=== PATIENT | female | born 1985 | race Caucasian/White ===

== ENCOUNTER 2023-12-12 10:35 | Outpatient (REF) | payer MEDICAID, SELFPAY ==
--- NOTE | 2023-12-12 15:48 | MHC.AU.MED ---
Medical Clearance for Hearing Instrumentation Date: 12/12/23 Patient Name: Lorena Garrett Date of : 1985 Primary Care Provider: Referring Provider: Mireille Palacios MD We have seen your patient on 12/12/23 and have determined that they are a candidate for amplification (See accompanying report). Specifically, they would benefit from: Hearing aid use in both ears There is a statute that addresses Medical Evaluation Requirements prior to fitting a patient with a hearing aid. According to [place] statute 265 CMR:6.03(1), (a) General. Except as provided in 265 CMR 6.03(1)(b), a groundskeeping yardman shall not sell a hearing aid unless the prospective user has presented to the groundskeeping yardman a written statement signed by a licensed physician that states that the patient's hearing loss has been medically evaluated and the patient may be considered a candidate for a hearing aid. The medical evaluation must have taken place within the preceding six months. Please note: Due to the [place] Statute referenced above, we cannot accept a signature other than that of a licensed physician. PLATFORM LOADER and PA signatures cannot be accepted. I am in agreement with the above recommendation. There is no medical contraindication for hearing instrumentation. Physician Signature Date Physician Name (Printed)
--- NOTE | 2023-12-15 09:33 | MHC.AU.HA1 ---
Hearing Aid Evaluation Date of Visit: 12/12/23 Screen Printing Paster Used: Declined by Patient Historical Information: Description of Hearing: Mild-moderate to profound sensorineural hearing loss Summary: Lorena visited with her sister and niece, who interpreted and provided history. Lorena has reportedly had hearing loss since childhood with unknown etiology. They suspect her hearing has gotten worse over time, but she only wore a hearing aid briefly in childhood and has not had a hearing test since then. They state she has general developmental delays with no official diagnosis, is generally nonverbal and also has vision issues. Testing shows mild-moderate to profound sensorineural hearing loss bilaterally. Discussed hearing aid options, they would prefer rechargeable aids so will pursue Phonak Yuli L70 P-Rs in beige. Impressions taken without incident-- recommended wax removal prior to hearing aid fitting. Hearing Aid Prescription: Based on the individual?s shared listening needs, communication environments, dexterity, desire for connectivity, and personal preferences, the following prescription for amplification has been made: Right ear: Make, Model, Color: Phonak Yuli L70 LA, beige Battery Size: Rechargeable Type of Earmold/Dome/CShell/SlimTip: skeleton Left ear: Left ear prescription to be same as Right Hearing Aid above: Make, Model, Color: Phonak Yuli L70 LA, beige Battery Size: Rechargeable Type of Earmold/Dome/CShell/SlimTip: skeleton Plan of Care: Action Taken/Action Needed: Earmold Impressions Taken Medical Clearance to be requested from PCP/ENT Hearing Instrument Fitting to be scheduled when materials arrive Primary Diagnosis: H90.3 Bilateral Sensorineural Hearing Loss Signature: Provider: Andrés Carlton, CCC-A
== END 2023-12-12 10:36 | disposition home or self-care (01) ==
LOC: HO.SH 10:35
PROVIDERS: Visit Provider Internal Medicine
DX: Z01.118 Encounter for examination of ears and hearing with other abnormal findings (principal); Z46.1 Encounter for fitting and adjustment of hearing aid; H90.3 Sensorineural hearing loss, bilateral
CPT/HCPCS: 92553; 92591; V5275

== ENCOUNTER 2024-01-29 14:50 | Outpatient (REF) | payer MEDICAID, SELFPAY ==
--- NOTE | 2024-01-30 10:44 | MHC.AU.HA2 ---
Hearing Instrument Fitting- Adult- Binaural Date of Visit: 01/29/24 Hearing Instruments Dispensed: Right Ear: Jaron, Model, Color, Serial Number: [id number] [id number] fausto PATEL S#[id number] Bank Vault Attendant Repair Warranty: 01/14/2027 Bank Vault Attendant Loss and Damage Warranty: 01/14/2027 [facility] Service Plan: 01/28/25 Battery Size: Rechargeable Earmold/Dome/CShell/SlimTip: skeleton Left Ear: Jaron, Model, Color, Serial Number: [id number] [id number] fausto PATEL [id number] Bank Vault Attendant Repair Warranty: 01/14/2027 Bank Vault Attendant Loss and Damage Warranty: 01/14/2027 [facility] Service Plan: 01/28/25 Battery Size: Rechargeable Earmold/Dome/CShell/SlimTip: skeleton Accessories/Assistive Technology: Phonak database technician combi S#[id number] Summary of Fitting: Lorena is here with her partner for fitting with hearing aids. An spring setter was present to communicate with Lorena, though he noted a [employer] would have been the correct donation worker for her and he and Lorena did their best to communicate. A tone cabinet assembler from [facility] was also present to translate for her partner. They were very excited for Lorena to receive hearing aids and are hopeful they will help her become more active as she often feels isolated because of her hearing loss. Programmed and verified to DSL 5.0 targets. VC is active. Lorena had a very positive initial reaction; she and her partner both began crying. She is excited to hear music. Discussed realistic expectations for hearing aids given long history of hearing loss without amplification and extent of hearing loss. Reviewed basics of charging/use, practiced insertion and removal. Will discuss cleaning at follow up. Lorena plans to have a smart phone by her next appointment and will bring it to pair with her hearing aids. Follow up to be scheduled for 2-3 weeks. Recommendations: Recommendations: A hearing instrument follow-up is recommended in 2-3 weeks. Diagnosis Code(s): Primary Diagnosis: H90.3 Bilateral Sensorineural Hearing Loss Signature: Provider: Andrés Carlton, CCC-A
== END 2024-01-29 14:51 | disposition home or self-care (01) ==
LOC: HO.HAP 14:50
PROVIDERS: Visit Provider Internal Medicine
DX: Z46.1 Encounter for fitting and adjustment of hearing aid (principal); H90.3 Sensorineural hearing loss, bilateral
CPT/HCPCS: V5011; V5020; V5160; V5261; V5264

== ENCOUNTER 2024-02-13 14:59 | Outpatient (REF) | payer MEDICAID, SELFPAY | END 2024-02-13 15:00 | disposition home or self-care (01) | LOC: HO.HAP 14:59 | PROVIDERS: Visit Provider Internal Medicine | DX: Z13.89 Encounter for screening for other disorder (principal) ==

== ENCOUNTER 2024-03-26 14:57 | Outpatient (REF) | payer MEDICAID, SELFPAY | END 2024-03-26 14:58 | disposition home or self-care (01) | LOC: HO.HAP 14:57 | PROVIDERS: Visit Provider Internal Medicine | DX: Z13.89 Encounter for screening for other disorder (principal) ==

== ENCOUNTER 2024-09-23 15:34 | Emergency (ER) | payer MEDICAID, SELFPAY ==
--- NOTE | ~2024-09-23 | XR_ITS ---
EXAMINATION: XR HAND, LEFT CLINICAL INFORMATION: Laceration. Pain. COMPARISON: None available. TECHNIQUE: PA, lateral, and oblique views of the left hand. FINDINGS: No fracture or dislocation. Joint spaces are well-maintained. The regional soft tissue is normal in appearance. No radiopaque foreign object. XR/XR hand LT min 3V IMPRESSION: Normal left hand. Electronically signed by: Chuck Downs DO 09/23/2024 06:12 PM JORGE ALBERTO
[2024-09-23 16:28] VITALS: BP 134/39; PULSE 91; RESP 16; TEMP 36.8; O2SAT 98; BMI 28.7
--- NOTE | 2024-09-23 16:32 | ED_ITS ---
HPI - Skin/Abscess/Foreign Bdy General Chief complaint: Wound/Laceration Stated complaint: l hand lac Time Seen by Provider: 09/23/24 22:54 Source: patient Mode of arrival: ambulatory Limitations: no limitations History of Present Illness ED Provider: patt HPI narrative: Patient's got laceration on the dorsum aspect of the left hand while opening the can no other injury x-ray negative for bony injury Related Data Allergies Allergy/AdvReac Type Severity Reaction Status Date / Time No Known Allergies Allergy Verified 09/23/24 16:32 [No Known Allergies*] Review of Systems 2 Review of Systems: Yes all other systems are reviewed and are negative PMFSH Social History Social History Advance Directives: No Advance Directives Information Provided: No Physical Exam 2 Vital Signs: Vital Signs: Last Vital Signs Temp 97.9 F 09/23/24 23:09 Pulse 99 09/23/24 23:09 Resp 20 09/23/24 23:09 BP 138/51 L 09/23/24 23:09 Pulse Ox 100 09/23/24 23:09 O2 Del Method Room Air 09/23/24 23:09 BMI result Body Mass Index 28.7 Extrem: Hand/finger images: 1. 3 cm long superficial laceration deeper tissue intact tendons intact neurovascular intact Course Course Course Narrative: This is an RME: Additional HPI, ROS, PE not included below will be deferred to primary provider. RME assessment and note performed by: Silke Perrin PA-C This is a 39-year-old female who presents emergency department with complaints of laceration to left hand. She accidentally lacerated her left hand on a can. She does have a 3 cm partial-thickness laceration requiring sutures. She is unsure when her last tetanus was. Plan: Wound repair, x-ray, further ER evaluation needed. Medications Administered Discontinued Medications Generic Name Dose Route Start Last Admin Trade Name Freq PRN Reason Stop Dose Admin Diphtheria/Tetanus/Acell Pertussis 0.5 ml 09/23/24 16:30 09/23/24 22:47 Diphth,Pertus(Acell),Tet Adult 0.5 Ml Syringe IM 09/23/24 16:31 0.5 ml .ONCE ONE Administration Procedures Laceration Laceration 1: Site: hand Side (If applicable): left Size (cm): 3 Description: linear Depth: simple, single layer Local Anesthetic: lidocaine 1% Amount of anesthesia used (mL): 3 Skin layer closed with: nylon Size (cm): 5-0 Number of sutures: 5 Technique: simple, interrupted Discharge Plan Discharge Clinical Impression: Laceration Patient Disposition: Home, Self-Care Instructions: Laceration (DC) Additional Instructions: Local care as advised Suture removal in 10-14 days Print Language: [place] Sign Language
[2024-09-23 21:56] VITALS: BP 148/54; PULSE 93; RESP 16; TEMP 36.4; O2SAT 99
--- NOTE | 2024-09-23 22:40 | PC.NURSE ---
pt from lobby, assume care of pt at this time
[2024-09-23] MEDS: Diphth,Pertus(ACell),Tet Adult 0.5 ML SYRINGE IM (22:47)
[2024-09-23 23:09] VITALS: BP 138/51; PULSE 99; RESP 20; TEMP 36.6; O2SAT 100
--- NOTE | 2024-09-23 23:09 | PC.NURSE ---
report to Bertha WALTER
[2024-09-23] MEDS: Bacitracin Oint 0.9 GM PACKET 1 APPL TOPICAL (23:57)
[2024-09-23] MEDS: Lidocaine HCl 1 % MPF 5 ML VIAL INFILTRATI (23:57)
--- NOTE | 2024-09-24 00:11 | PC.NURSE ---
Review discharge instructions with family, verbalized understanding, positive cms and pulses, no sign of distress.
[2024-09-24 00:13] VITALS: BP 138/51; PULSE 99; RESP 20; TEMP 36.6; O2SAT 100
== END 2024-09-24 00:13 | disposition home or self-care (01) ==
PROVIDERS: Emergency Provider Internal Medicine; PCP Internal Medicine
DX: S61.412A Laceration without foreign body of left hand, initial encounter (principal); M79.642 Pain in left hand; W26.8XXA Contact with other sharp object(s), not elsewhere classified, initial encounter; Y93.9 Activity, unspecified; Y92.89 Other specified places as the place of occurrence of the external cause; Y99.8 Other external cause status; Z23 Encounter for immunization
CPT/HCPCS: 12002; 73130; 90471; 90715; 99284; J2003